=== PATIENT | male | born 1975 | race Caucasian/White ===

== ENCOUNTER 2022-05-05 08:43 | Outpatient (CLI) | payer OTHER, SELFPAY | END 2022-05-05 08:44 | disposition home or self-care (01) | LOC: NFLDREF 18:22 | PROVIDERS: PCP Family Medicine; Referring Provider Family Medicine; Visit Provider Family Medicine | DX: G47.30 Sleep apnea, unspecified (principal); G89.29 Other chronic pain; R53.83 Other fatigue; G62.9 Polyneuropathy, unspecified; Z76.89 Persons encountering health services in other specified circumstances; Z79.899 Other long term (current) drug therapy | CPT/HCPCS: 80053; 80061; 82306; 82607; 84443; 86618 ==

== ENCOUNTER 2022-05-11 19:28 | Outpatient (CLI) | payer OTHER, SELFPAY ==
--- NOTE | 2022-05-24 12:05 | W.PM.SLEEP ---
Sleep Study Details Details Interpreting Provider: Raven Date of Sleep Study: 05/11/22 Sleep Study Details: STUDY TYPE:? Home ? BMI:? Not recorded ORDERING PROVIDER:? Chela INDICATION:? Concerns about sleep apnea ? SLEEP SUMMARY:? 328 minutes monitored RESPIRATORY SUMMARY:? AHI 6.2. Entire study was done supine. Low oxygen 87 0.4% of study oxygen less than 90% Snoring 0 % PERIODIC LIMB MOVEMENTS OF SLEEP:? Not recorded CARDIAC:? Range 68-102, mean 78.1 IMPRESSION:? Mild obstructive sleep apnea with AHI of 6.2 RECOMMENDATION: If the patient is symptomatic treatment could consist of either CPAP, dental appliance, or airway expansion surgery.
--- NOTE | 2022-06-01 09:53 | W.PM.SLEEP ---
Sleep Study Details Details Interpreting Provider: Raven Date of Sleep Study: 05/11/22 Sleep Study Details: STUDY TYPE:? Unattended home ? BMI:? Not recorded ORDERING PROVIDER:? Chela INDICATION:? Concerns about sleep apnea ? SLEEP SUMMARY:? 328 minutes monitored RESPIRATORY SUMMARY:? AHI 6.2. The entire study was done supine Low oxygen 87 0.4% of study oxygen less than 90% Snoring 0% PERIODIC LIMB MOVEMENTS OF SLEEP:? Not recorded CARDIAC:? Range 68-102, mean 78.1 IMPRESSION:? Mild obstructive sleep apnea RECOMMENDATION: If the patient is symptomatic lead tired treatment options could consist of CPAP AutoSet 4-17, dental appliance, weight loss and/or airway expansion surgery.
== END 2022-05-11 19:29 | disposition home or self-care (01) ==
LOC: SLEEP 19:29
PROVIDERS: PCP Family Medicine; Visit Provider Family Medicine
DX: G47.33 Obstructive sleep apnea (adult) (pediatric) (principal)
CPT/HCPCS: 95806

== ENCOUNTER 2023-10-24 07:57 | Outpatient (CLI) | payer OTHER, SELFPAY | END 2023-10-24 07:58 | disposition home or self-care (01) | LOC: NFLDREF 10-26 11:19 | PROVIDERS: PCP Family Medicine; Referring Provider Family Medicine; Visit Provider Family Medicine | DX: Z00.00 Encounter for general adult medical examination without abnormal findings (principal); Z13.1 Encounter for screening for diabetes mellitus; Z13.6 Encounter for screening for cardiovascular disorders | CPT/HCPCS: 80053; 80061 ==

== ENCOUNTER 2024-01-12 08:03 | Outpatient (CLI) | payer OTHER, SELFPAY | END 2024-01-12 08:04 | disposition home or self-care (01) | LOC: NFLDREF 01-16 08:29 | PROVIDERS: PCP Family Medicine; Referring Provider Family Medicine; Visit Provider Family Medicine | DX: E78.00 Pure hypercholesterolemia, unspecified (principal) | CPT/HCPCS: 80061; 80076 ==

== ENCOUNTER 2024-02-29 16:14 | Outpatient (CLI) | payer OTHER, SELFPAY ==
--- NOTE | 2024-02-29 16:45 | CRLHL7_ITS ---
For Patients: As a result of the Century Cures Act, medical imaging exams and procedure reports are released immediately into your electronic medical record. You may view this report before your referring provider. If you have questions, please contact your health care provider. Indication : Cough TECHNIQUE: CT chest without contrast. COMPARISON: None. FINDINGS: Lungs and pleura: Right upper lobe granulomas. There is subpleural ground-glass and reticulation bilaterally this could be related to interstitial fibrosis. There is no honeycombing versus other infectious inflammatory etiologies. No airspace consolidation no effusion is seen. Heart and vasculature: Heart size is normal. Thoracic aorta and pulmonary artery are normal in caliber. Lymph nodes/mediastinum: No mediastinal, hilar, or axillary adenopathy. Chest wall: No masses. Upper abdomen: No significant findings. Bones: Unremarkable for age. IMPRESSION: 1. Subpleural reticulation and ground-glass opacities could be related to mild interstitial fibrosis or other interstitial process. Please note that all CT scans at this facility use dose modulation, iterative reconstruction, and/or weight-based dosing when appropriate to reduce radiation dose to as low as reasonably achievable. Dictated by Savanah Tracey MD @ 03/01/2024 11:42:35 AM (Electronically Signed)
== END 2024-02-29 16:15 | disposition home or self-care (01) ==
LOC: CT 16:15
PROVIDERS: PCP Family Medicine; Visit Provider Family Medicine
DX: R05.9 Cough, unspecified (principal); Z72.0 Tobacco use
CPT/HCPCS: 71250

== ENCOUNTER 2024-05-17 08:15 | Outpatient (CLI) | payer OTHER, SELFPAY | END 2024-05-17 08:16 | disposition home or self-care (01) | LOC: NFLDREF 05-21 00:44 | PROVIDERS: PCP Family Medicine; Referring Provider Family Medicine; Visit Provider Family Medicine | DX: I25.10 Atherosclerotic heart disease of native coronary artery without angina pectoris (principal); E78.00 Pure hypercholesterolemia, unspecified | CPT/HCPCS: 80061; 80076 ==

== ENCOUNTER 2024-06-06 14:36 | Outpatient (CLI) | payer OTHER, SELFPAY ==
--- NOTE | 2024-06-06 14:41 | W.PM.STED ---
Stress Test Note Date Date Seen: 06/06/24 Date of test: 06/06/24 Providers Primary care provider: Sushil York Stress test physician: Lizette Nagy Stress Test Note Stress test ordered: Exercise Stress Test Indication for test: Abnormal calcium score Stress test medicine: None Results discussion: Resting EKG: Sinus rhythm, 68 beats per minute. Flipped T-waves lead 3. Right bundle branch block. Resting blood pressure: 133/84 Stress test: Patient is consented on treadmill exercise stress test, standard Jovanny protocol is followed. It is reported that imaging modality has been declined by insurance. Patient is able to exercise to 8 minutes 35 seconds equivalent to 10.3 Mets. He had a maximum heart rate of 152 beats per minute which was 104% of a calculated target heart rate of 145. He had a maximal exercise blood pressure 170/90 with the rate pressure product of 25,840. Exercise was terminated due to meeting exercise capacity with his legs bothering him due to the incline, some shortness of breath. He did not have any chest pain. No arrhythmia was noted, no diagnostic EKG criteria for ischemia noted. His heart rate and blood pressure recovered nicely. Impression: Subjectively negative, objectively negative treadmill exercise stress test. Follow up suggested: Patient will continue to work with his primary care provider on lifestyle modification, risk factor reduction for coronary artery disease. He is discharged from here in stable condition.
[2024-06-06 15:27] VITALS: BP 136/72; PULSE 78; RESP 16
== END 2024-06-06 14:37 | disposition home or self-care (01) ==
LOC: STRESS 14:37
PROVIDERS: PCP Family Medicine; Visit Provider Family Medicine
DX: I25.10 Atherosclerotic heart disease of native coronary artery without angina pectoris (principal); I45.10 Unspecified right bundle-branch block; R06.09 Other forms of dyspnea
CPT/HCPCS: 93016; 93017

== ENCOUNTER 2024-07-12 15:00 | Outpatient (CLI) | payer OTHER, SELFPAY ==
--- NOTE | 2024-07-12 15:00 | CRLHL7_ITS ---
For Patients: As a result of the Century Cures Act, medical imaging exams and procedure reports are released immediately into your electronic medical record. You may view this report before your referring provider. If you have questions, please contact your health care provider. INDICATION: Edema TECHNIQUE: Ultrasound venous duplex lower extremity bilateral. Compression venous exam was performed using danielle-scale, color Doppler, and spectral Doppler imaging. COMPARISON: None. FINDINGS: Sonographic imaging demonstrates the common femoral, deep femoral, superficial femoral, popliteal, posterior tibial and greater saphenous veins to be fully compressible with normal color Doppler blood flow in both lower extremities. IMPRESSION: Normal bilateral lower extremity venous ultrasound, no sign of deep venous thrombosis. Dictated by Claudio Allan MD @ 07/12/2024 4:02:12 PM (Electronically Signed)
== END 2024-07-12 15:01 | disposition home or self-care (01) ==
PROVIDERS: PCP Family Medicine; Visit Provider Family Medicine
DX: R60.9 Edema, unspecified (principal)
CPT/HCPCS: 93970

== ENCOUNTER 2024-11-19 08:42 | Outpatient (CLI) | payer OTHER, SELFPAY | END 2024-11-19 08:43 | disposition home or self-care (01) | LOC: LKVREF 08:43 | PROVIDERS: PCP Family Medicine; Visit Provider Family Medicine | DX: Z00.00 Encounter for general adult medical examination without abnormal findings (principal) | CPT/HCPCS: G0103 ==

== ENCOUNTER 2024-12-11 14:52 | Outpatient (CLI) | payer OTHER, SELFPAY ==
[2024-12-11] MEDS: PERFLUTREN LIPID MICROSPHERES 2 ML VIAL IVP (15:57)
== END 2024-12-11 14:53 | disposition home or self-care (01) ==
LOC: RAD 14:52
PROVIDERS: PCP Family Medicine; Visit Provider Family Medicine
DX: R06.09 Other forms of dyspnea (principal); I25.10 Atherosclerotic heart disease of native coronary artery without angina pectoris; Z82.49 Family history of ischemic heart disease and other diseases of the circulatory system
CPT/HCPCS: 93306; Q9957

== ENCOUNTER 2025-01-31 08:02 | Outpatient (CLI) | payer OTHER, SELFPAY | END 2025-01-31 08:03 | disposition home or self-care (01) | LOC: NFLDREF 02-03 12:58 | PROVIDERS: PCP Family Medicine; Referring Provider Family Medicine; Visit Provider Family Medicine | DX: E78.00 Pure hypercholesterolemia, unspecified (principal); I25.10 Atherosclerotic heart disease of native coronary artery without angina pectoris | CPT/HCPCS: 80061; 80076; 82607; 84403; 84443 ==